=== PATIENT | male | born 1955 | race Caucasian/White ===

== ENCOUNTER 2019-06-24 14:58 | Emergency (ER) | payer MEDICAID ==
[2019-06-24 15:15] VITALS: Wt 50.0 kg
[2019-06-24 18:18] LABS: HEMATOCRIT 46.5 % (42.0-54.0); MCH 32.8 pg (26.0-34.0); MCHC 34.4 g/dL (31.0-37.0); MCV 95.3 fL (80.0-100.0); PLATELET COUNT 241 10x3/uL (130-400); RBC 4.88 10x6/uL (4.20-6.10); RDW 14.6 % (11.5-14.5); WBC 11.5 10x3/uL (4.8-10.8)
[2019-06-24 18:22] LABS: ANION GAP 7.1 mmol/L (8-16); BILIRUBIN - TOTAL 0.26 mg/dL (0.2-1.3); CARBON DIOXIDE 31.9 mmol/L (21.0-32.0); CREATININE - SERUM 1.3 mg/dL (0.6-1.3); PROTEIN - SERUM 5.9 g/dL (6.4-8.2)
[2019-06-24 18:44] LABS: EOSINOPHILS 2 % (0-7); LYMPHOCYTES 33 % (15-50); MONOCYTES 2 % (2-11); NEUTROPHILS 58 % (40-80); PLATELET ESTIMATE NORMAL
[2019-06-24 18:45] LABS: TARGET CELLS OCC
[2019-06-24 18:55] LABS: APPEARANCE CLEAR (CLEAR); COLOR YELLOW (YELLOW); GLUCOSE NEGATIVE (NEGATIVE); NITRITE NEGATIVE (NEGATIVE); PROTEIN NEGATIVE (NEGATIVE)
[2019-06-24 18:56] LABS: BILIRUBIN NEGATIVE (NEGATIVE); KETONE NEGATIVE (NEGATIVE); UROBILINOGEN NORMAL (NORMAL)
[2019-06-24 21:18] VITALS: BP 108/91
== END 2019-06-24 21:18 | disposition home or self-care (01) ==
LOC: D.ER 14:58
PROVIDERS: Family Medicine
DX: R53.1 Weakness (principal); J44.9 Chronic obstructive pulmonary disease, unspecified; F17.213 Nicotine dependence, cigarettes, with withdrawal